=== PATIENT | female | born 1940 | race Caucasian/White ===

== ENCOUNTER 2016-10-11 13:52 | Emergency (ER) | payer BC, OTHER ==
[~2016-10-11] VITALS: Ht 162.6 cm; Wt 79.4 kg
[~2016-10-11 13:52] MED LIST: ASPI81TA28 PO; LEVO-217 PO; MULTTAB58 PO; NYST100010 TOP; OMEGCAP2 PO; TRMCR130WC TOP
[2016-10-11 14:03] VITALS: TEMP 36.9; Ht 162.6 cm; Wt 79.4 kg
[2016-10-11 15:04] VITALS: O2SAT 97
[2016-10-11 15:07] LABS: BASO ABS # 0.08 K/uL (0-0.2); COMPLETE YES; EOS % 9.2 %; HEMATOCRIT 42.1 % (37-47); IG% 0.2 %; LYMPH % 18.4 %; MEAN CELL VOLUME 89.4 fL (80-100); MEAN CORPUSCULAR HEMOGLOBIN 29.7 pg (25-34); MEAN CORPUSCULAR HGB CONC 33.3 g/dl (32-36); MEAN PLATELET VOLUME 9.4 fL (7.4-10.4); MONO % 9.1 %; NEUT % 62.1 %; PLATELET COUNT 238 K/uL (130-400); RED BLOOD COUNT 4.71 M/uL (4.2-5.4); WHITE BLOOD COUNT 8.14 K/uL (4.8-10.8)
[2016-10-11 15:23] LABS: BUN/CREATININE RATIO 9.2 (10-20); CALCIUM 9.2 mg/dl (8.5-10.1); CREATININE 0.94 mg/dl (0.60-1.20); POTASSIUM 3.4 mmol/L (3.5-5.1)
[2016-10-11] MEDS ORDERED: ALBUT/IPRATROP 3MG/0.5MG NEB 3 ML VIAL INH STA (16:00)
--- NOTE | 2016-10-11 16:05 | DIAGNOSTIC IMAGING REPORT ---
CHEST 2 VIEWS ROUTINE HISTORY: Cough. COMPARISON: Chest 08/21/2012. FINDINGS: The lungs are clear. Cardiac silhouette is normal in size. No pleural effusions. No pneumothorax. IMPRESSION: No acute process. Electronically signed by: Benito Vora M.D. 10/11/2016 4:04 PM Dictated Date/Time: 10/11/2016 4:02 PM
[2016-10-11] MEDS ORDERED: HYDR5SYP11 PO (16:29)
[2016-10-11] MEDS ORDERED: AZITTAB PO (16:29)
[2016-10-11] MEDS ORDERED: SYN50 PO (16:38)
[2016-10-11 17:10] VITALS: BP 166/91; PULSE 77; O2SAT 98
--- NOTE | 2016-10-11 19:14 | EMERGENCY ROOM VISIT NOTE ---
History Report prepared by Marshall: Krista Dhillon Under the Supervision of: Dr. Cory Beltran M.D. First contact with patient: 14:22 Chief Complaint: CONGESTION Stated Complaint: CHEST CONGESTION, COUGH X 4 WEEKS History of Present Illness The patient is a 75 year old female who presents to the Emergency Room with complaints of constant congestion beginning 4 weeks prior to arrival. The patient 4 weeks ago began to experience a cough and chest congestion. She went to Urgent Care and had a flu swab done. It was negative. She was given Tamiflu and took it for 5 days. She has not seen improvement of her symptoms. The patient notes that her cough is productive of white sputum. The patient denies fever, heart disease, diabetes or hypertension. She does take thyroid medication. 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 A total of 10 systems reviewed and were otherwise negative. Past Medical & Surgical Medical Problems: (1) Hypothyroidism (2) Hysterectomy Family History Patient reports no known family medical history. Social History Smoking Status: Former Smoker Marital Status: Housing Status: lives alone Occupation Status: employed Current/Historical Medications Scheduled Azithromycin (Zithromax Z-Roverto), 1 PKT PO UD Levothyroxine Sodium (Synthroid), 50 MCG PO QAM Scheduled PRN Hydrocodone W/ Homatropine (Hycodan 5/1.5MG 5 Ml), 5 ML PO Q4H PRN for Cough Allergies Coded Allergies: Penicillins (Verified Allergy, Unknown, UNKNOWN, 10/11/16) Lactose Intolerance (Verified Adverse Reaction, Intermediate, GI SYMPTOMS , 08/21/12) Statins (Verified Adverse Reaction, Intermediate, GI SYMPTOMS, 10/11/16) ALSO "ASTHMA SYMPTOMS" Physical Exam Vital Signs Date Time Temp Pulse Resp B/P Pulse Ox O2 Delivery O2 Flow Rate FiO2 10/11/16 17:10 77 18 166/91 98 10/11/16 16:09 71 12 158/90 100 Nebulizer 7.0 10/11/16 15:05 72 18 143/93 97 Room Air 10/11/16 15:05 69 10/11/16 15:04 97 Room Air 10/11/16 14:03 36.9 81 20 162/101 97 Room Air Physical Exam Constitutional: Vital signs reviewed. Coughing throughout exam. Eyes: Pupils are equal round reactive to light. Conjunctiva are noninjected. ENT: Pharynx is clear without erythema or exudate. Mucous membranes are moist. Neck supple without meningeal signs. Respiratory: Limited due to coughing. No rales. Breath sounds are equal bilaterally. Cardiovascular: Regular rate and rhythm. No rubs or gallops. GI: Soft, nondistended and nontender. Bowel sounds are present. Musculoskeletal: No peripheral edema. No lower extremity tenderness. Integumentary: No cyanosis. Neurological: The patient is awake and alert. No focal deficits. Psychiatric: Normal affect. Medical Decision & Procedures ER Provider Diagnostic Interpretation: X-ray results as stated below per interpretation by me and the radiologist: CHEST 2 VIEWS ROUTINE HISTORY: Cough. COMPARISON: Chest 08/21/2012. FINDINGS: The lungs are clear. Cardiac silhouette is normal in size. No pleural effusions. No pneumothorax. IMPRESSION: No acute process. Electronically signed by: Benito Vora M.D. 10/11/2016 4:04 PM Dictated Date/Time: 10/11/2016 4:02 PM Laboratory Results 10/11/16 14:50 Red Blood Count 4.71, Mean Corpuscular Volume 89.4, Mean Corpuscular Hemoglobin 29.7, Mean Corpuscular Hemoglobin Concent 33.3, Mean Platelet Volume 9.4, Neutrophils (%) (Auto) 62.1, Lymphocytes (%) (Auto) 18.4, Monocytes (%) (Auto) 9.1, Eosinophils (%) (Auto) 9.2, Basophils (%) (Auto) 1.0, Neutrophils # (Auto) 5.05, Lymphocytes # (Auto) 1.50, Monocytes # (Auto) 0.74, Eosinophils # (Auto) 0.75, Basophils # (Auto) 0.08 10/11/16 14:50 Test 10/11/16 14:50 10/11/16 14:55 White Blood Count 8.14 K/uL (4.8-10.8) Red Blood Count 4.71 M/uL (4.2-5.4) Hemoglobin 14.0 g/dL (12.0-16.0) Hematocrit 42.1 % (37-47) Mean Corpuscular Volume 89.4 fL (80-100) Mean Corpuscular Hemoglobin 29.7 pg (25-34) Mean Corpuscular Hemoglobin Concent 33.3 g/dl (32-36) Platelet Count 238 K/uL (130-400) Mean Platelet Volume 9.4 fL (7.4-10.4) Neutrophils (%) (Auto) 62.1 % Lymphocytes (%) (Auto) 18.4 % Monocytes (%) (Auto) 9.1 % Eosinophils (%) (Auto) 9.2 % Basophils (%) (Auto) 1.0 % Neutrophils # (Auto) 5.05 K/uL (1.4-6.5) Lymphocytes # (Auto) 1.50 K/uL (1.2-3.4) Monocytes # (Auto) 0.74 K/uL (0.11-0.59) Eosinophils # (Auto) 0.75 K/uL (0-0.5) Basophils # (Auto) 0.08 K/uL (0-0.2) RDW Standard Deviation 41.5 fL (36.4-46.3) RDW Coefficient of Variation 12.8 % (11.5-14.5) Immature Granulocyte % (Auto) 0.2 % Immature Granulocyte # (Auto) 0.02 K/uL (0.00-0.02) Anion Gap 7.0 mmol/L (3-11) Est Creatinine Clear Calc Drug Dose 53.5 ml/min Estimated GFR () 69.3 Estimated GFR (Non- 59.8 BUN/Creatinine Ratio 9.2 (10-20) Calcium Level 9.2 mg/dl (8.5-10.1) Bedside Troponin I 0.000 ng/ml (0-0.045) Laboratory results as reviewed by me. Medications Administered Medications (Trade) Dose Ordered Sig/Brittanie Route Start Time Stop Time Status Last Admin Dose Admin Albuterol/ Ipratropium (Duoneb) 3 ml NOW STAT INH 10/11/16 16:00 10/11/16 16:01 DC 10/11/16 16:09 3 ML ECG Indication: SOB/dyspnea Rate (beats per minute): 69 Rhythm: normal sinus Findings: T-wave inversion (precordial leads), ST elevation (no), no ectopy ED Course 1423: The patient was evaluated in room B5. A complete history and physical exam was performed. 1600: Duoneb 3 ml INH. 1626: I reevaluated the patient. She is requesting something stronger for her cough. I discussed her test results, need for follow up and medication side effects. 1633: Upon reevaluation, the patient appeared to have improvement of her symptoms. I discussed tonight's findings with her. She verbalized agreement of the treatment plan. She was discharged home. Medical Decision This is a 75-year-old female presents with cough, shortness breath and congestion for a month. Differential diagnosis includes pneumonia, bronchitis, pleurisy, anemia, cardiac. I did perform a limited focused review of portions of the patient's old chart on the electronic medical record. The patient has had no recent pertinent visits to this hospital. I did evaluate the patient as noted above. She is presenting with a 4 week history of shortness breath, chest congestion and a productive cough. She tested negative for the flu but was placed on Tamiflu by an urgent care center. She has had no resolution of her symptoms. Her cough is persistent despite taking Tessalon Perles. IV access was established. The patient was placed on a continuous school bus monitor. I did order and personally review the patient's 12-lead EKG and chest x-ray as described above. Her twelve-lead EKG does not demonstrate any ischemic changes. Her chest x-ray does not show pneumonia. Her white blood cell count is not elevated. Her troponin is 0. I did order and review the patient's blood work as noted in the electronic medical record. I did discuss the test results with the patient. I did treat her with a DuoNeb. I did recommend antibiotic treatment given the length of her symptoms. She requested something stronger for her cough and was given a prescription for Hycodan as well as Zithromax. She was given precautions regarding her Hycodan. She was advised follow up with her doctor and discharged in good condition. Impression Primary Impression: Acute bronchitis Scribe Attestation The scribe's documentation has been prepared under my direct and personally reviewed by me in its entirety. I confirm that the note above accurately reflects all work, treatment, procedures, and medical decision making performed by me. Departure Information Dispostion Home / Self-Care Prescriptions Hydrocodone W/ Homatropine (HYCODAN 5/1.5MG 5 ML) 1 Syp Syp 5 ML PO Q4H Y for Cough, #100 ML Prov: Cory Beltran M.D. 10/11/16 Azithromycin (ZITHROMAX Z-ROVERTO) 250 Mg Tab 1 PKT PO UD for 5 Days, #1 PKT Prov: Cory Beltran M.D. 10/11/16 Referrals No Doctor, Assigned (PCP) Forms HOME CARE DOCUMENTATION FORM, IMPORTANT VISIT INFORMATION Patient Instructions ED Bronchitis Abx Tx, My [facility] Additional Instructions You have been examined and treated today on an emergency basis only. This is not a substitute for, or an effort to provide, complete comprehensive medical care. It is impossible to recognize and treat all injuries or illnesses in a single emergency department visit. It is therefore important that you follow up closely with your physician. Call as soon as possible for an appointment. Return for worsening symptoms or if you develop fever, vomiting, chest pain or any other concerning symptoms. Problem Qualifiers Primary Impression: Acute bronchitis Bronchitis organism: unspecified organism Qualified Codes: J20.9 - Acute bronchitis, unspecified
== END 2016-10-11 17:12 | disposition home or self-care (01) ==
LOC: C.EDB 13:54
DX: J20.9 Acute bronchitis, unspecified (principal); E03.9 Hypothyroidism, unspecified; Z87.891 Personal history of nicotine dependence; Z79.899 Other long term (current) drug therapy

== ENCOUNTER 2017-08-21 17:18 | Emergency (ER) | payer OTHER ==
[~2017-08-21] VITALS: Ht 162.6 cm; Wt 84.4 kg
[~2017-08-21 17:18] MED LIST changes: -ASPI81TA28 PO; -LEVO-217 PO; -MULTTAB58 PO; -NYST100010 TOP; -OMEGCAP2 PO; +SYN50 PO; -TRMCR130WC TOP
[2017-08-21 17:27] VITALS: TEMP 36.9; Ht 162.6 cm; Wt 84.4 kg
[2017-08-21] MEDS ORDERED: DIPHTHERIA/TETANUS/PERTUSSIS 0.5 ML SYR/VIAL IM. ONE (17:45)
[2017-08-21] MEDS ORDERED: XYLOCAINE 1%/SOD BICARB 20 ML VIAL INFIL ONE (17:45)
[2017-08-21] MEDS ORDERED: CEPH500C PO ×2 (17:51→17:54)
[2017-08-21] MEDS ORDERED: CEPHALEXIN MONOHYDRATE 250 MG CAP PO ONE (18:30)
[2017-08-21 18:54] VITALS: BP 133/76; PULSE 69; O2SAT 96
--- NOTE | 2017-08-21 19:57 | EMERGENCY ROOM VISIT NOTE ---
ED Visit Note First contact with patient: 17:31 CHIEF COMPLAINT: Hand laceration HISTORY OF PRESENT ILLNESS: This 76-year-old female patient presents to the emergency department after cutting the right hand while taking the garbage out tonight. The patient believes she cut her hand on the sharp edge of a metal can. The bleeding has stopped. Denies weakness or numbness of the hand or fingers. The patient rates the pain as dull and 3/10. The patient denies any other injuries. The patient's Tetanus shot is not up to date. REVIEW OF SYSTEMS: A 6 system review of systems was completed with positives and pertinent negatives listed in the HPI. ALLERGIES: See EMR MEDICATIONS: See EMR PMH: See EMR SOCIAL HISTORY: Lives locally PHYSICAL EXAM: Vital Signs: Reviewed Nurse's notes, vital signs stable. GENERAL : White female, in no acute distress, well-developed, well-nourished. SKIN: There is a 2.0 cm long laceration on the palmar lateral aspect of the right hand especially in the webbing between the first and second digits. The edges gape apart with traction. There is no foreign material in the wound and it looks clean. There is no bleeding. The flexor tendon of the right thumb is noted. No bony exposure or deep structure injury appreciated. Normal strength and movement of the fingers and wrist. Capillary refill less than 2 seconds. Normal sensation to light and sharp touch. EMERGENCY DEPARTMENT COURSE: I examined the patient. Verbal consent was obtained to perform the procedure. Using sterile technique the wound was cleansed with Betadine. The area was sterilely draped. 3 ml of 1% buffered lidocaine was used to anesthetize the laceration on the hand. Once the patient was anesthetized, the wound was copiously irrigated under pressure with sterile saline. The wound was explored and was as described above. The laceration was repaired using 3 simple interrupted 5-0 nylon sutures with the wound edges being well approximated. The patient tolerated the procedure well. Hemostasis was achieved. The area was cleaned with sterile saline and dressed with bacitracin ointment and bandage. The patient was given Td immunization. She is given a dose of Keflex here in the department. She will be given a continuation course of the medication because of the tendon exposure. The patient was discharged home in good condition. Problem List Medical Problems: (1) Hypothyroidism Status: Chronic (2) Hysterectomy Status: Resolved Current/Historical Medications Scheduled Cephalexin Monohydrate (Keflex), 500 MG PO TID Levothyroxine Sodium (Synthroid), 50 MCG PO QAM Allergies Coded Allergies: Penicillins (Verified Allergy, Unknown, UNKNOWN, 10/11/16) Lactose Intolerance (Verified Adverse Reaction, Intermediate, GI SYMPTOMS , 08/21/12) Statins (Verified Adverse Reaction, Intermediate, GI SYMPTOMS, 10/11/16) ALSO "ASTHMA SYMPTOMS" Vital Signs Date Time Temp Pulse Resp B/P (MAP) Pulse Ox O2 Delivery O2 Flow Rate FiO2 08/21/17 18:54 69 20 133/76 96 08/21/17 17:27 36.9 70 20 145/93 96 Room Air Medications Administered Medications (Trade) Dose Ordered Sig/Brittanie Route Start Time Stop Time Status Last Admin Dose Admin Diphtheria/ Pertussis/Tetanus Vacc (Adacel Inj) 0.5 ml ONCE ONCE IM. 08/21/17 17:45 08/21/17 17:46 DC 08/21/17 17:56 0.5 ML Cephalexin Monohydrate (Keflex Cap) 500 mg NOW ONCE PO 08/21/17 18:30 08/21/17 18:31 DC 08/21/17 18:47 500 MG Departure Information Impression Primary Impression: Laceration of right thumb Dispostion Home / Self-Care Condition GOOD Prescriptions Cephalexin Monohydrate (Keflex) 500 Mg Cap 500 MG PO TID for 5 Days, #15 CAP . Prov: Lanre Hernandez PA-C 08/21/17 Forms HOME CARE DOCUMENTATION FORM, IMPORTANT VISIT INFORMATION Patient Instructions My [facility] Additional Instructions Keep wound clean and dry. Do not allow any crusting or dried blood to accumulate on sutures. If this occurs, use a mild soap/water on a Q-tip to clean the wound. Do not use Peroxide to clean the wound as this can delay healing Use an antibiotic ointment like Bacitracin for 3-4 days, then let wound dry. You may bathe and shower as normal, but DO NOT SOAK the wound. Suture removal in about 8-10 days with your Family Doctor or in the ER. Return sooner for any signs of infection, increasing redness, swelling, or drainage. Cephalexin(Keflex) 500mg: Take one pill 3 times daily for 5 days to prevent infection. All antibiotics can cause diarrhea. If this occurs and you feel worse or it does not resolve in 1-2 days follow up with your doctor or return to the Emergency Department as this could be signs of serious underlying problems. Any medication can cause an allergic reaction, stop the pills immediately and return to the ER for rash, hives, breathing difficulties, or swelling.
== END 2017-08-21 18:55 | disposition home or self-care (01) ==
LOC: C.EDB 17:19 → C.EDD 18:55
DX: S61.011A Laceration without foreign body of right thumb without damage to nail, initial encounter (principal); Y93.E9 Activity, other interior property and clothing maintenance; Z23 Encounter for immunization; E03.9 Hypothyroidism, unspecified; Z88.0 Allergy status to penicillin; Z88.8 Allergy status to other drugs, medicaments and biological substances; Z91.011 Allergy to milk products; Z90.710 Acquired absence of both cervix and uterus

== ENCOUNTER 2017-09-01 10:29 | Emergency (ER) | payer OTHER ==
[~2017-09-01] VITALS: Ht 162.6 cm; Wt 83.0 kg
[~2017-09-01 10:29] MED LIST changes: +CEPH500C PO
[2017-09-01 10:50] VITALS: BP 149/106; PULSE 67; TEMP 36.6; O2SAT 96; Ht 162.6 cm; Wt 83.0 kg
[2017-09-01] MEDS ORDERED: AUG0.05O4 TOP (11:16)
[2017-09-01] MEDS ORDERED: LEVO75TA PO (11:16)
--- NOTE | 2017-09-01 18:16 | EMERGENCY ROOM VISIT NOTE ---
History First contact with patient: 11:01 Chief Complaint: SUTURE/STAPLE REMOVAL Stated Complaint: NEED STITCHES REMOVED Nursing Triage Summary: pt to have sutures removed from R thumb , denies rednes swelling or pain History of Present Illness The patient is a 76 year old female who presents to the Emergency Room for staple removal from a right thumb laceration that was repaired in our department 11 days ago. Patient denies any wound complications. She has been keeping a bandage over the wound. She denies any pain, loss of function, paresthesias or numbness of the thumb. Review of Systems Noncontributory Past Medical/Surgical History Medical Problems: (1) Hypothyroidism (2) Hysterectomy Family History Patient reports no known family medical history. Social History Smoking Status: Current Every Day Smoker Marital Status: Housing Status: lives alone Occupation Status: employed Current/Historical Medications Scheduled Betamethasone Dip Aug 0.05% (Diprolene 0.05%), 1 APPL TOP DAILY Levothyroxine Sodium (Synthroid), 75 MCG PO DAILY Physical Exam Vital Signs Date Time Temp Pulse Resp B/P (MAP) Pulse Ox O2 Delivery O2 Flow Rate FiO2 18 10:50 36.6 67 18 149/106 96 Room Air Pain Rating (0-10): 0 Physical Exam MUSCULOSKELETAL: Examination of the volar base of the right thumb shows a well- healed laceration. The tissue is somewhat macerated from bandage use. Sutures were removed without any wound diastases Medical Decision & Procedures ED Course The patient was encouraged to leave the wound try out, avoiding maceration which can further soften the tissue and increase the risk for diastases. She was encouraged to follow-up with her PCP as needed for any further wound management. Medical Decision Impression Primary Impression: Encounter for removal of sutures Additional Impression: Laceration of right thumb Departure Information Dispostion Home / Self-Care Condition GOOD Referrals No Doctor, Assigned (PCP) Forms HOME CARE DOCUMENTATION FORM, IMPORTANT VISIT INFORMATION Patient Instructions [facility] Problem Qualifiers Additional Impression: Laceration of right thumb Encounter type: subsequent encounter Damage to nail status: without damage Foreign body presence: without foreign body Qualified Codes: S61.011D - Laceration without foreign body of right thumb without damage to nail, subsequent encounter
== END 2017-09-01 11:19 | disposition home or self-care (01) ==
LOC: C.EDB 10:30 → C.EDD 11:19
DX: S61.011D Laceration without foreign body of right thumb without damage to nail, subsequent encounter (principal); X58.XXXD Exposure to other specified factors, subsequent encounter; E03.9 Hypothyroidism, unspecified; F17.200 Nicotine dependence, unspecified, uncomplicated; Z90.710 Acquired absence of both cervix and uterus

== ENCOUNTER → 2017-09-29 | Outpatient (CLI) | payer OTHER ==
[~2017-09-29] MED LIST changes: +AUG0.05O4 TOP; -CEPH500C PO; +LEVO75TA PO; -SYN50 PO
== END | disposition home or self-care (01) ==
LOC: C.LABBFT 09:12
PROVIDERS: ATTEND Internal Medicine
DX: E03.9 Hypothyroidism, unspecified (principal)

== ENCOUNTER → 2018-01-13 | Outpatient (CLI) | payer OTHER | END | disposition home or self-care (01) | LOC: C.LABBFT 13:20 | PROVIDERS: ATTEND Physician Assistant Medical | DX: E03.9 Hypothyroidism, unspecified (principal) ==

== ENCOUNTER 2024-06-24 12:04 | Inpatient (IN) ==
[2024-06-24 12:45] LABS: Basophils # (auto) 0.01 K/uL (0.00-0.20); Basophils % (auto) 0.2 %; Eosinophils # (auto) 0.01 K/uL (0.00-0.50); Eosinophils % (auto) 0.2 %; Hematocrit (blood only) 46.9 % (37.0-47.0); Hemoglobin 15.9 g/dl (12.0-16.0); Immature Granulocytes # (auto) 0.01 K/uL (0.01-0.20); Immature Granulocytes % (auto) 0.2 %; Lymphocytes # (auto) 0.62 K/uL (1.20-3.40); Lymphocytes % (auto) 14.1 %; Mean Corpuscular Hemoglobin 29.6 pg (25.0-34.0); Mean Corpuscular Hgb Conc 33.9 g/dL (32.0-36.0); Mean Corpuscular Volume 87.2 fL (80.0-100.0); Monocytes # (auto) 0.39 K/uL (0.11-0.59); Monocytes % (auto) 8.9 %; Neutrophils # (auto) 3.36 K/uL (1.40-6.50); Neutrophils % (auto) 76.4 %; Platelet Count 192 K/uL (130-400); RDW Coefficient of Variation 12.1 % (11.5-14.5); Red Blood Count 5.38 M/uL (4.20-5.40)
--- NOTE | 2024-06-24 13:04 | XRay Report ---
XR chest 1V not portable CLINICAL HISTORY: Dyspnea COMPARISON STUDY: 08/21/2012 FINDINGS: Heart size and pulmonary vasculature are normal. Stable hyperexpanded lungs. No effusion or consolidation. IMPRESSION: No pneumonia seen. ACT 112: Negative or not required by law. Electronically signed by: Tutu James M.D. 06/24/2024 1:03 PM
[2024-06-24 13:07] LABS: Albumin Globulin Ratio 1.3 (0.9-2); Albumin Level 4.2 gm/dl (3.4-5.0); BUN Creatinine Ratio 13.5 (10-20); Bilirubin,Total 0.6 mg/dl (0.2-1.0); Creatinine Clr Calc Pharmacy 58.6 ml/min; Globulin 3.3 gm/dl (2.5-4.0); Potassium 3.2 mmol/L (3.5-5.1); Total Protein 7.5 gm/dl (6.0-8.3)
[2024-06-24 13:09] LABS: INR 0.9 (0.9-1.1)
[2024-06-24 13:14] LABS: Troponin I High Sensitivity 6.1 pg/ml (0-14)
--- NOTE | 2024-06-24 13:20 | Emergency Department Note ---
Impression & Plan Influenza A, Acute dyspnea, Acute hypoxemic respiratory failure ED Provider Note HISTORY OF PRESENT ILLNESS: Patient is an 83-year-old female presenting with shortness of breath and cough. Patient reports that she developed cold-like symptoms starting 6 days ago. Reports that her shortness of breath and cough have worsened throughout the week. She reports the cough is nonproductive. She has had subjective fevers and chills at home throughout the week. Reports multiple sick contacts at [facility] recently. She states that she woke up today and had 4 episodes of loose watery diarrhea. Denies any recent antibiotic or steroid use. Denies any abdominal pain. Denies any nausea or vomiting. She reports a chest tightness and heaviness. ROS: as above PHYSICAL EXAM: Constitutional: Patient appears in no acute distress. HENT: Head: Normocephalic and atraumatic. Eyes: EOMI, PERRL Mouth/Throat: Mucous membranes moist. Neck: Trachea midline. Neck supple. Cardiovascular: RRR, No murmurs, rubs or gallops. Intact distal pulses. Pulmonary/Chest: Coarse breath sounds bilaterally. Abdominal: Abdomen soft, no tenderness, rebound or guarding. Musculoskeletal: No edema, tenderness or deformity noted. Skin: Warm and dry. No rash, erythema, pallor or cyanosis Psychiatric: Appropriate mood and affect for situation. Neurological: Alert and keenly responsive. CN II-XII grossly intact, moving all extremities equally and fully. MDM: - Vitals signs showed hypertension. Patient was brought back to an examination room and on assessment she was saturating 87 to 88% on room air and placed on 2 L nasal cannula. - History obtained via patient. History as above. - Chronic conditions affecting care: hypothyroidism; HLD - Differential diagnoses include, but are not limited to: Congestive heart failure; acute coronary syndrome; COPD/asthma exacerbation; pulmonary edema; pulmonary embolism; pneumonia; pneumothorax; viral syndrome - Order placed for continuous cardiac monitoring. At this time, monitor showed rate of 72 bpm with normal sinus rhythm, per my interpretation. - External medical records reviewed. Primary care visit note dated 03/21/2024 was reviewed. Patient follows in their clinic for her basal cell carcinoma of the neck. She had cryotherapy performed. - EKG interpreted by myself showed normal sinus rhythm. Rate 74 bpm. QT 394. No acute ischemic changes, but is noted to have some ST depressions and T wave inversions in V4 through V6. - Laboratory workup interpreted by myself showed slight leukopenia (WBC 4.40); normal PT/INR; slight hypokalemia (K 3.2); normal troponin; normal BNP - Viral respiratory panel positive for influenza type A. - CXR negative for pneumonia, per my interpretation - Given a DuoNeb treatment in the emergency department. Given patient's hypoxia and new oxygen requirement, will admit to hospitalist service. - Discussion was had with caseworker intake about patient's case and need for admission - Hospitalist consulted for admission - Patient admitted to [facility] hospitalist service for further evaluation and management. ASSESSMENT AND PLAN: Diagnosis: Acute dyspnea; influenza A infection; acute hypoxic respiratory failure Plan: Admit Past Med/Surg History Problem List (Updated 06/24/24 @ 14:39 by Nell Townsend MD) Acute hypoxemic respiratory failure (Acute) Acute dyspnea (Acute) Influenza A (Acute) Seborrheic keratoses Basal cell carcinoma of neck Cobalamin deficiency Statin intolerance Statin myopathy HLD (hyperlipidemia) Insomnia Skin lesion of neck Fatigue Ambulatory dysfunction Right sided sciatica Vitamin D deficiency (Chronic) Hypothyroidism (Chronic) Medical History Hypercholesteremia Rash and nonspecific skin eruption Laceration of right thumb Surgical History History of cataract surgery H/O: hysterectomy S/P cholecystectomy Family History Father Myocardial infarction Heart disease Mother Hodgkin lymphoma Aunt Diabetes Uncle Diabetes Denies family history of Ovarian cancer Prostate cancer Breast cancer Colorectal cancer Social History Smoking Status: Never smoker Tobacco Type: Cigarettes Age Started Using Tobacco: 19; Age Quit Using Tobacco: 38; packs per day: 1; Cigarettes Per Day: 20; Second Hand Exposure: No; Do You Dip or Chew Tobacco: No; Hx Alcohol Use: No Hx Substance Use: No Preferred Language: Georgian Communication Ability: Effective Visual Impairment: No Limitations Hearing Ability: Normal Field Technical Specialist Required: No Beliefs That Will Affect Care: None marital status: Current Living Situation: Alone Current Living Situation Comment: she has close neighbors and her daughter checks on her a lot current occupational status: employed and retired 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, 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 Feels Safe at Home: Yes Childhood Exposure to Second-Hand Smoke: No Diet: regular Dental Care, Regularly: No Physical Activity Frequency: Daily Seatbelt Use: always Sunscreen Use: No Assistive Devices: Denture - Upper, Denture - Lower and Glasses Allergies Allergies Allergy/AdvReac Type Severity Reaction Status Date / Time Penicillins Allergy Unknown UNKNOWN Verified 03/10/24 11:03 gabapentin AdvReac Intermediate lightheaded, Verified 03/10/24 11:03 N/V/D lactose AdvReac Intermediate GI SYMPTOMS Verified 03/10/24 11:03 Rujkpgf-DNC-RyC Reductase AdvReac Intermediate GI SYMPTOMS Verified 03/10/24 11:03 Inhibitor [Sxixgvq-Qoh-Pjn Reductase Inhibitor] azithromycin AdvReac Mild diarrhea Verified 03/10/24 11:03 prednisone AdvReac Mild Diarrhea Verified 03/10/24 11:03 Home Meds Home Medications Medication Instructions Recorded Confirmed cholecalciferol (vitamin D3) 50 50 mcg PO DAILY 02/19/24 04/26/24 mcg (2,000 unit) capsule Previous Rx's Medication Instructions Recorded cholecalciferol (vitamin D3) 25 25 mcg PO DAILY #90 caps 03/10/24 mcg (1,000 unit) capsule ezetimibe 10 mg tablet 10 mg PO DAILY #30 tabs 03/10/24 levothyroxine 75 mcg tablet 75 mcg PO QAM #90 tabs 03/10/24 Results & Data (ED) Vital Signs Vital Signs - 24 hr 06/24/24 12:13 06/24/24 13:08 06/24/24 13:19 Temperature 36.5 C Temperature Source Oral Pulse Rate 84 72 Respiratory Rate 18 Blood Pressure 145/93 H Blood Pressure Mean 110 Pulse Oximetry 91 87 L Oxygen Delivery Method Room Air Room Air Sepsis Recent Fever Within 48 Hours No Sepsis New/Unexplained Change in Mental Status No Sepsis Action Taken by Nursing No Action Required Oxygen Flow Rate - Titration 3 Pulse Oximetry Post Tiitration 95 Laboratory Data 06/24/24 12:26 06/24/24 12:26 Lab Results 06/24/24 Range/Units 12: WBC 4.40 L (4.8-10.8) K/ul RBC 5.38 (4.20-5.40) M/uL Hgb 15.9 (12.0-16.0) g/dl Hct 46.9 (37.0-47.0) % MCV 87.2 (80.0-100.0) fL MCH 29.6 (25.0-34.0) pg MCHC 33.9 (32.0-36.0) g/dL RDW Std Deviation 39.0 (36.4-46.3) fL RDW Coeff of Rowdy 12.1 (11.5-14.5) % Plt Count 192 (130-400) K/uL MPV 10.0 (9.4-12.4) fL Immature Gran % (Auto) 0.2 % Neut % (Auto) 76.4 % Lymph % (Auto) 14.1 % [place] % (Auto) 8.9 % Eos % (Auto) 0.2 % Baso % (Auto) 0.2 % Neut # (Auto) 3.36 (1.40-6.50) K/uL Lymph # (Auto) 0.62 L (1.20-3.40) K/uL [place] # (Auto) 0.39 (0.11-0.59) K/uL Eos # (Auto) 0.01 (0.00-0.50) K/uL Baso # (Auto) 0.01 (0.00-0.20) K/uL Immature Gran # (Auto) 0.01 (0.01-0.20) K/uL PT 10.0 (9.0-12.0) Seconds INR 0.9 (0.9-1.1) Sodium 137 (136-145) mmol/L Potassium 3.2 L (3.5-5.1) mmol/L Chloride 97 L (98-107) mmol/L Carbon Dioxide 31 (21-32) mmol/L Anion Gap 9 (3-11) BUN 10 (6-23) mg/dl Creatinine 0.74 (0.6-1.2) mg/dl Est Cr Clr Drug Dosing 58.6 ml/min eGFR 80.73 BUN/Creatinine Ratio 13.5 (10-20) Glucose 109 H (70-99(Fasting)) mg/dl Calcium 9.0 (8.6-10.3) mg/dl Magnesium 2.0 (1.7-2.4) mg/dl Total Bilirubin 0.6 (0.2-1.0) mg/dl AST 21 (13-39) U/L ALT 12 (7-52) U/L Alkaline Phosphatase 78 (34-104) U/L Troponin I High Sens 6.1 (0-14) pg/ml B-Natriuretic Peptide 37 (0-100) pg/ml Total Protein 7.5 (6.0-8.3) gm/dl Albumin 4.2 (3.4-5.0) gm/dl Globulin 3.3 (2.5-4.0) gm/dl Albumin/Globulin Ratio 1.3 (0.9-2) Adenovirus (PCR) Not Detected (NotDetected) B. pertussis DNA (PCR) Not Detected (NotDetected) B.parapertussis DNA PCR Not Detected (NotDetected) C. pneumoniae DNA (PCR) Not Detected (NotDetected) Coronavirus OC43 (PCR) Not Detected (NotDetected) Coronavirus HKU1 (PCR) Not Detected (NotDetected) Coronavirus 229E (PCR) Not Detected (NotDetected) SARS-CoV-2 (PCR) Not Detected (NotDetected) Coronavirus NL63 (PCR) Not Detected (NotDetected) Human Metapneumovir PCR Not Detected (NotDetected) Influenza A (H3) PCR DETECTED A (NotDetected) Influenza Type B (PCR) Not Detected (NotDetected) M. pneumoniae (PCR) Not Detected (NotDetected) Parainfluenza 1 (PCR) Not Detected (NotDetected) Parainfluenza 2 (PCR) Not Detected (NotDetected) Parainfluenza 3 (PCR) Not Detected (NotDetected) Parainfluenza 4 (PCR) Not Detected (NotDetected) RSV (PCR) Not Detected (NotDetected) Entero/Rhino (PCR) Not Detected (NotDetected) Administered Medications Discontinued Medications Albuterol (Albut/Ipratrop 3mg/0.5mg Neb 3 Ml Vial) 3 ml NEB NOW STA; Protocol Stop: 06/24/24 13:19 Last Admin: 06/24/24 13:23 Dose: 3 ml Documented By: MR Imaging Data Radiologist's Impression: Chest X-Ray 06/24/24 12:16 XR chest 1V not portable CLINICAL HISTORY: Dyspnea COMPARISON STUDY: 08/21/2012 FINDINGS: Heart size and pulmonary vasculature are normal. Stable hyperexpanded lungs. No effusion or consolidation. IMPRESSION: No pneumonia seen. ACT 112: Negative or not required by law. Electronically signed by: Tutu James M.D. 06/24/2024 1:03 PM Discharge Plan Visit Data Chief Complaint: Cough Stated Complaint: COUGH, SOB, FEVER, WEAKNESS ED Provider: Nell Townsend Discharge Problem: Influenza A, Acute dyspnea, Acute hypoxemic respiratory failure Forms Stand Alone Forms: APX Prescriptions Prescriptions: No Action cholecalciferol (vitamin D3) 50 mcg (2,000 unit) capsule 50 mcg PO DAILY levothyroxine 75 mcg tablet 75 mcg PO QAM Qty: 90 3RF ezetimibe 10 mg tablet 10 mg PO DAILY Qty: 30 2RF cholecalciferol (vitamin D3) 25 mcg (1,000 unit) capsule 25 mcg PO DAILY Qty: 90 3RF Referrals Referrals: Tony Pederson DO [Primary Care Provider] -
[2024-06-24] MEDS: ALBUT/IPRATROP 3MG/0.5MG NEB 3 ML VIAL NEB STA (13:23)
[2024-06-24 13:51] LABS: Adenovirus PCR Not Detected (NotDetected); Bordetella parapertussis PCR Not Detected (NotDetected); Bordetella pertussis PCR Not Detected (NotDetected); Chlamydia pneumoniae PCR Not Detected (NotDetected); Coronavirus 229E PCR Not Detected (NotDetected); Coronavirus CoV-2 (COVID19)PCR Not Detected (NotDetected); Coronavirus HKU1 PCR Not Detected (NotDetected); Coronavirus NL63 PCR Not Detected (NotDetected); Coronavirus OC43PCR Not Detected (NotDetected); Human Metapneumovirus PCR Not Detected (NotDetected); Influenza A (H3) PCR DETECTED (NotDetected); Influenza B PCR Not Detected (NotDetected); Mycoplasma pneumoniae PCR Not Detected (NotDetected); Parainfluenza Virus 1 PCR Not Detected (NotDetected); Parainfluenza Virus 2 PCR Not Detected (NotDetected); Parainfluenza Virus 3 PCR Not Detected (NotDetected); Parainfluenza Virus 4 PCR Not Detected (NotDetected); Respiratory Syncytial VirusPCR Not Detected (NotDetected); Rhinovirus/Enterovirus PCR Not Detected (NotDetected)
[2024-06-24] MEDS ORDERED: ACETAMINOPHEN 325 MG TAB PO PRN (14:36)
[2024-06-24] MEDS ORDERED: ALBUTEROL 0.083% NEBU SOLN 3 ML VIAL NEB PRN (14:36)
--- NOTE | 2024-06-24 14:47 | History & Physical Report ---
Date of Service June 24, 2024 Assessment & Plan (1) Acute hypoxemic respiratory failure: Plan: Assessment: 1. Acute hypoxemic respiratory failure secondary to #2. 2. Acute influenza A positivity. Pulmonary toilet including oral Tamiflu and nebulizer treatments. And supplemental oxygen therapy. 3. Mild leukopenia this appears to be acute on chart review. I do suspect this from her acute viral illness. Monitor. 3. Dyslipidemia continue home medication. 5. Hypothyroidism continue home Synthroid supplementation. Check TSH in the a.m. Plan: As described above. Please refer to orders for further planning. History of Present Illness Chief Complaint: Shortness of breath, cough Primary Care Provider: DO Shauna Tenorio 83-year-old female whose had some intermittent shortness of breath cough over the last week and a half or so. Over the last 24 hours has been significantly worse with her shortness of breath he presented to the ER for further evaluation and treatment. In the ER she was identified to have influenza A positivity. Her oxygen saturation dropped to 87% on room air she was placed on supplemental oxygen and given a nebulizer treatment. Her other labs were unremarkable with exception some mild leukopenia which is probably secondary to her acute viral illness. We were called admit the patient for further evaluation and treatment for acute influenza A. We have ordered her Tamiflu. Will continue nebulizer treatments. Watch her on [facility] telemetry track her oxygen levels we do anticipate she will need to overnight at least until her oxygenation improves prior to discharge. Allergies Allergy/AdvReac Type Severity Reaction Status Date / Time Penicillins Allergy Unknown UNKNOWN Verified 03/10/24 11:03 gabapentin AdvReac Intermediate lightheaded, Verified 03/10/24 11:03 N/V/D lactose AdvReac Intermediate GI SYMPTOMS Verified 03/10/24 11:03 Aylngpx-HTV-KnE Reductase AdvReac Intermediate GI SYMPTOMS Verified 03/10/24 11:03 Inhibitor [Mtjarkx-Uyo-Hnf Reductase Inhibitor] azithromycin AdvReac Mild diarrhea Verified 03/10/24 11:03 prednisone AdvReac Mild Diarrhea Verified 03/10/24 11:03 Home Medications Medication Instructions Recorded Confirmed Type cholecalciferol (vitamin D3) 50 50 mcg PO DAILY 02/19/24 04/26/24 History mcg (2,000 unit) capsule cholecalciferol (vitamin D3) 25 25 mcg PO DAILY #90 caps 03/10/24 04/26/24 Rx mcg (1,000 unit) capsule ezetimibe 10 mg tablet 10 mg PO DAILY #30 tabs 03/10/24 04/26/24 Rx levothyroxine 75 mcg tablet 75 mcg PO QAM #90 tabs 03/10/24 04/26/24 Rx Past Med/Surg History Problem List (Updated 06/24/24 @ 14:39 by Nell Townsend MD) Acute hypoxemic respiratory failure (Acute) Acute dyspnea (Acute) Influenza A (Acute) Seborrheic keratoses Basal cell carcinoma of neck Cobalamin deficiency Statin intolerance Statin myopathy HLD (hyperlipidemia) Insomnia Skin lesion of neck Fatigue Ambulatory dysfunction Right sided sciatica Vitamin D deficiency (Chronic) Hypothyroidism (Chronic) Medical History Hypercholesteremia Rash and nonspecific skin eruption Laceration of right thumb Surgical History History of cataract surgery H/O: hysterectomy S/P cholecystectomy Family History Father Myocardial infarction Heart disease Mother Hodgkin lymphoma Aunt Diabetes Uncle Diabetes Denies family history of Ovarian cancer Prostate cancer Breast cancer Colorectal cancer Social History Smoking Status: Never smoker Tobacco Type: Cigarettes Age Started Using Tobacco: 19; Age Quit Using Tobacco: 38; packs per day: 1; Cigarettes Per Day: 20; Second Hand Exposure: No; Do You Dip or Chew Tobacco: No; Hx Alcohol Use: No Hx Substance Use: No Preferred Language: Romanian Communication Ability: Effective Visual Impairment: No Limitations Hearing Ability: Normal Adult Literacy Instructor Required: No Beliefs That Will Affect Care: None marital status: Current Living Situation: Alone Current Living Situation Comment: she has close neighbors and her daughter checks on her a lot current occupational status: employed and retired 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 Physical Exam Physical Exam: In General: In general very pleasant 83-year-old female who is alert and oriented x 3 at the time of my exam. She had not been informed yet by the ER that she tested positive for flu or was needing admitted. We discussed all these issues with her in depth. She was appreciative of her time. 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 HEENT: Normocephalic atraumatic pupils are equal round and reactive to light bilaterally. No scleral icterus no conjunctival injection external auditory canals are patent septum is in the midline nose is without discharge oral mucosa is pink and moist without lesion. NECK: Supple no rigidity no lymphadenopathy no thyromegaly no carotid bruits no JVD no masses. HEART: Regular rate and rhythm I do not appreciate any ectopy or rub. No murmur. LUNGS: Coarse bilaterally with bilateral expiratory wheezes. No moe rhonchi. ABDOMEN: Soft nontender, no rebound, no peritoneal signs, positive bowel sounds, no appreciable organomegaly. EXTREMITIES: Intact, no peripheral cyanosis, clubbing or edema. Strength is 5 out of 5 in extremities x4.. NEUROLOGICAL: Cranial nerves II through XII are grossly intact with no focal deficit elicited upon examination. Results & Data Results & Data Vital Signs (Past 12 Hours) Vital Signs Temp Pulse Resp BP Pulse Ox O2 Del Method 06/24/24 13:19 87 L Room Air 06/24/24 13:08 72 06/24/24 12:13 36.5 C 84 18 145/93 H 91 Room Air Code Status & VTE Plan Code Status Full code. I personally discussed with patient at the bedside. Her next of kin is her daughter. VTE Prophylaxis Plan VTE Prophylaxis will be ordered: Yes PG Care Time/CCT Total # of Minutes Spent Total Time Spent with Patient: Total time spent is greater than 50% in coordination of care (as documented) at patient's floor/unit and/or counseling patient: Coding Level of Care Code 57916 INT INP/OBS CARE 3/75MIN Diagnoses Acute hypoxemic respiratory failure J96.01
[2024-06-24] MEDS: OSELTAMIVIR PHOSPHATE 75 MG CAP PO STA (14:54)
--- NOTE | 2024-06-24 17:50 | Electrocardiogram Report ---
Test Reason : Blood Pressure : */* mmHG Vent. Rate : 74 BPM Atrial Rate : 74 BPM P-R Int : 162 ms QRS Dur : 92 ms QT Int : 394 ms P-R-T Axes : 54 -23 79 degrees QTcB Int : 437 ms Normal sinus rhythm Abnormal ECG When compared with ECG of 11-Oct-2016 14:57, Nonspecific T wave abnormality now evident in Inferior leads Confirmed by Yimi Frias ([id number]) on 06/24/2024 5:50:23 PM Referred By: REFERRED SELF Confirmed By: Yimi Frias
[2024-06-24] MEDS: ALBUT/IPRATROP 3MG/0.5MG NEB 3 ML VIAL NEB SCH (19:46)
[2024-06-24] MEDS: OSELTAMIVIR PHOSPHATE 75 MG CAP PO SCH (19:54)
[2024-06-25 00:20] LABS: Appearance Urine Clear (Clear); Bacteria Urine Automated 1+ (None Seen); Bilirubin Urine Negative (Negative); Blood Urine 1+ (Negative); Cast Urine Automated 0-2 /lpf (0-2); Color Urine Yellow; Epithelial Cell Urine Auto 0-2 /hpf (0-2); Glucose Urine UA Negative (Negative); Ketones Urine Trace (Negative); Leukocyte Esterase Urine Trace (Negative); Nitrite Urine Negative (Negative); Protein Urine Trace (Negative); Specific Gravity Urine 1.024 (1.000-1.030); Urobilinogen Urine Negative (Negative); WBC Urine Automated 0-5 /hpf (0-5)
[2024-06-25] MEDS: LEVOTHYROXINE SODIUM 75 MCG TABLET PO SCH (06:36)
[2024-06-25 07:08] LABS: Basophils # (auto) 0.02 K/uL (0.00-0.20); Basophils % (auto) 0.4 %; Eosinophils # (auto) 0.04 K/uL (0.00-0.50); Eosinophils % (auto) 0.9 %; Hematocrit (blood only) 41.6 % (37.0-47.0); Hemoglobin 14.1 g/dl (12.0-16.0); Immature Granulocytes # (auto) 0.01 K/uL (0.01-0.20); Immature Granulocytes % (auto) 0.2 %; Lymphocytes # (auto) 1.08 K/uL (1.20-3.40); Mean Corpuscular Hemoglobin 29.4 pg (25.0-34.0); Mean Corpuscular Hgb Conc 33.9 g/dL (32.0-36.0); Mean Corpuscular Volume 86.8 fL (80.0-100.0); Mean Platelet Volume 10.3 fL (9.4-12.4); Monocytes # (auto) 0.48 K/uL (0.11-0.59); Monocytes % (auto) 10.2 %; Neutrophils # (auto) 3.06 K/uL (1.40-6.50); Neutrophils % (auto) 65.3 %; Platelet Count 178 K/uL (130-400); RDW Standard Deviation 38.5 fL (36.4-46.3); Red Blood Count 4.79 M/uL (4.20-5.40); White Blood Count 4.69 K/ul (4.8-10.8)
--- NOTE | 2024-06-25 07:12 | Hospitalist Progress Note ---
Date of Service June 25, 2024 Assessment & Plan (1) Acute hypoxemic respiratory failure: (2) Influenza A (H1N1): (3) Hypothyroidism: (4) HLD (hyperlipidemia): (5) Hypokalemia: Plan # Acute Respi failure *Improving. - Presented to ED in respi failure. SPO2: 87% at RA - Sec to Influenza A. Sick for a week now. - Chest Xray: No acute changes, no PNE. - No previous lung issue. No use of O2 before. - Admitted for O2 supplementation: 2L/ min Tamiflu/ DuoNeb Nebulization - O2 weaning trial today, if tolerates possible DC tomorrow. # Mild leucopenia: - Persistent; 4.69 today----< 4.40 - Sec to Viral illness. #Hypokalemia Mild,Improving: K: 3.3---< 3.2 Sec to acute nutritional compromise No other RFs, anticipate improvement on diet. #Other issues - Dyslipidemia: on Ezetimibe, Today's lipid under goal. 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 Soriano. Patient tolerating tamiflu. Weaning oxygen as able. Subjective This AM Mrs. Saleh feels a lot better. Her cough is getting better, No new complains. No SOB, CP, no fever. Mentions some headache and overall decreased appetite since sickness. Review of Systems Review of Systems: As per HPI Physical Exam Physical Exam: Constitutional: Well appearing, No acute distress, With Nasal canula. HEENT: Atraumatic, Normocephalic, No conjunctival injection CVS: S1 S2 no murmur, Regular Rhythm, no LE edema Respiratory: BL equal air entry with coarse breath sound. No increased work of breathing GI: Soft, Nondistended, Nontender, Normal Bowel sounds + MSK: No gross deformities noted Skin: Warm, Dry, No rashes Neuro: Alert, Oriented to TPP, No Focal deficit Psych: Mood and Affect congruent, Cooperative on exam Results & Data Results & Data Vital Signs (Past 12 Hours) Vital Signs Temp Pulse Pulse Resp BP Pulse Ox O2 Del Method 06/25/24 04:00 36.7 C 67 18 121/75 93 Nasal Cannula 06/25/24 00:09 67 18 91 Nasal Cannula 06/24/24 23:34 65 06/24/24 22:40 37.1 C 66 18 134/73 91 Nasal Cannula 06/24/24 20:18 Nasal Cannula 06/24/24 19:46 71 18 92 Nasal Cannula 06/24/24 19:32 36.8 C 66 18 133/80 91 Nasal Cannula O2 Flow Rate 06/25/24 04:00 2 06/25/24 00:09 2 06/24/24 23:34 06/24/24 22:40 2 06/24/24 20:18 2 06/24/24 19:46 2 06/24/24 19:32 2 Resident Activity Tracking Resident Involvement: Resident Care Provided Care Provided: Adult Hospital Medicine
[2024-06-25 07:28] LABS: Albumin Globulin Ratio 1.3 (0.9-2); Albumin Level 3.7 gm/dl (3.4-5.0); BUN Creatinine Ratio 12.9 (10-20); Bilirubin,Total 0.7 mg/dl (0.2-1.0); Calcium 8.5 mg/dl (8.6-10.3); Chol HDL Ratio 3.6 (0-5); Creatinine Clr Calc Pharmacy 69.9 ml/min; Globulin 2.8 gm/dl (2.5-4.0); Potassium 3.3 mmol/L (3.5-5.1); Total Protein 6.5 gm/dl (6.0-8.3)
[2024-06-25 07:42] LABS: Thyroid Stimulating Hormone 1.504 uIu/ml (0.300-4.500)
[2024-06-25] MEDS: EZETIMIBE 10 MG TAB PO SCH (08:55)
[2024-06-25 11:35] LABS: Adenovirus F 40/41 PCR Not Detected (NotDetected); Astrovirus PCR Not Detected (NotDetected); Campylobacter PCR Not Detected (NotDetected); Cryptosporidium PCR Not Detected (NotDetected); Cyclospora cayetanensis PCR Not Detected (NotDetected); Entamoeba histolytica PCR Not Detected (NotDetected); Enteroaggregative E.coli(EAEC) Not Detected (NotDetected); Enteropathogenic E.coli (EPEC) Not Detected (NotDetected); Enterotoxigenic E.coli (ETEC) Not Detected (NotDetected); Giardia lamblia PCR Not Detected (NotDetected); Norovirus GI/GII PCR Not Detected (NotDetected); Plesiomonas shigelloides PCR Not Detected (NotDetected); Rotavirus A PCR Not Detected (NotDetected); Salmonella PCR Not Detected (NotDetected); Sapovirus PCR Not Detected (NotDetected); Shiga-like Toxin E.coli (STEC) Not Detected (NotDetected); Shigella/Enteroinvasive E.coli Not Detected (NotDetected); Vibrio cholerae PCR Not Detected (NotDetected); Vibrio species PCR Not Detected (NotDetected); Yersinia enterocolitica PCR Not Detected (NotDetected)
[2024-06-25] MEDS: PLASMA-LYTE A 1,000 ML IV SCH (13:58)
[2024-06-26 06:11] LABS: Hematocrit (blood only) 39.5 % (37.0-47.0); Hemoglobin 13.3 g/dl (12.0-16.0); Mean Corpuscular Hemoglobin 29.8 pg (25.0-34.0); Mean Corpuscular Hgb Conc 33.7 g/dL (32.0-36.0); Mean Corpuscular Volume 88.4 fL (80.0-100.0); Mean Platelet Volume 10.2 fL (9.4-12.4); Platelet Count 169 K/uL (130-400); RDW Coefficient of Variation 12.1 % (11.5-14.5); RDW Standard Deviation 39.2 fL (36.4-46.3); Red Blood Count 4.47 M/uL (4.20-5.40); White Blood Count 4.22 K/ul (4.8-10.8)
[2024-06-26 06:27] LABS: BUN Creatinine Ratio 10.2 (10-20); Calcium 8.3 mg/dl (8.6-10.3); Creatinine Clr Calc Pharmacy 73.5 ml/min; Potassium 3.5 mmol/L (3.5-5.1)
[2024-06-26 06:39] LABS: ALC (manual) 1.18 K/uL (1.2-3.4); ANC (manual) 2.91 K/uL (1.4-6.5); Lymphocytes # (manual) 1.06 K/uL (1.2-3.4); Lymphocytes % (manual) 25 %; Monocytes # (manual) 0.13 K/uL (0.11-0.59); Monocytes % (manual) 3 %; Neutrophils # (manual) 2.91 K/uL (1.40-6.50); Neutrophils % (manual) 69 %; Plasma Cells # (manual) 0.13 K/uL (0-0); Plasma Cells % (manual) 3 %
[2024-06-26 07:07] VITALS: RESP 16
[2024-06-26 11:04] VITALS: TEMP 97.7
--- NOTE | 2024-06-26 12:40 | Discharge Summary ---
Date of Service June 26, 2024 Admission HPI Per Admitting Provider Shauna 83-year-old female whose had some intermittent shortness of breath cough over the last week and a half or so. Over the last 24 hours has been significantly worse with her shortness of breath he presented to the ER for further evaluation and treatment. In the ER she was identified to have influenza A positivity. Her oxygen saturation dropped to 87% on room air she was placed on supplemental oxygen and given a nebulizer treatment. Her other labs were unremarkable with exception some mild leukopenia which is probably secondary to her acute viral illness. We were called admit the patient for further evaluation and treatment for acute influenza A. We have ordered her Tamiflu. Will continue nebulizer treatments. Watch her on [employer] telemetry track her oxygen levels we do anticipate she will need to overnight at least until her oxygenation improves prior to discharge. Admission Exam Per Admitting Provider In General: In general very pleasant 83-year-old female who is alert and oriented x 3 at the time of my exam. She had not been informed yet by the ER that she tested positive for flu or was needing admitted. We discussed all these issues with her in depth. She was appreciative of her time. 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 HEENT: Normocephalic atraumatic pupils are equal round and reactive to light bilaterally. No scleral icterus no conjunctival injection external auditory canals are patent septum is in the midline nose is without discharge oral mucosa is pink and moist without lesion. NECK: Supple no rigidity no lymphadenopathy no thyromegaly no carotid bruits no JVD no masses. HEART: Regular rate and rhythm I do not appreciate any ectopy or rub. No murmur. LUNGS: Coarse bilaterally with bilateral expiratory wheezes. No moe rhonchi. ABDOMEN: Soft nontender, no rebound, no peritoneal signs, positive bowel sounds, no appreciable organomegaly. EXTREMITIES: Intact, no peripheral cyanosis, clubbing or edema. Strength is 5 out of 5 in extremities x4.. NEUROLOGICAL: Cranial nerves II through XII are grossly intact with no focal deficit elicited upon examination Principal Diagnosis Improved respiratory failure Influenza A. Discharge Exam Constitutional: Well appearing, No acute distress, With Nasal canula. HEENT: Atraumatic, Normocephalic, No conjunctival injection CVS: S1 S2 no murmur, Regular Rhythm, no LE edema Respiratory: BL equal air entry with coarse breath sound. No increased work of breathing GI: Soft, Nondistended, Nontender, Normal Bowel sounds + MSK: No gross deformities noted Skin: Warm, Dry, No rashes Neuro: Alert, Oriented to TPP, No Focal deficit Psych: Mood and Affect congruent, Cooperative on exam Discharge Data Allergies Allergy/AdvReac Type Severity Reaction Status Date / Time Penicillins Allergy Unknown UNKNOWN Verified 06/24/24 15:04 gabapentin AdvReac Intermediate lightheaded, Verified 06/24/24 15:04 N/V/D lactose AdvReac Intermediate GI SYMPTOMS Verified 06/24/24 15:04 Gdkfkhi-MNY-PnF Reductase AdvReac Intermediate GI SYMPTOMS Verified 06/24/24 15:04 Inhibitor [Poshvdy-Aqj-Fim Reductase Inhibitor] azithromycin AdvReac Mild diarrhea Verified 06/24/24 15:04 prednisone AdvReac Mild Diarrhea Verified 06/24/24 15:04 Consultations 06/24/24 14:34 ED Decision to Admit Stat Hospital Course (1) Acute hypoxemic respiratory failure: (2) Influenza A (H1N1): (3) Hypothyroidism: (4) HLD (hyperlipidemia): (5) Hypokalemia: Plan # Acute Respi failure * Sec to Influenza A; Improved. Treated with Tamiflu, nebulization and O2 supple. - Weaned off O2 on DC. Will complete Tamiflu for 5 days total( 3 more days) #Hypokalemia Improved, On DC: 3.5 Encouraged Nutritional intake. Appetite better on DC. #Other issues - Dyslipidemia: on Ezetimibe, lipid under goal. - Hypothyroidism: On Synthroid, TSH: 1.15, continue same. Independent on ADLs: DC to home. Total Time Total Time Spent Total Time Spent (In Minutes): See attending's attestation Discharge Plan Discharge Items Patient Disposition: Home - Self-Care Reason For Visit: SOB Discharge Diagnosis: INFLUENZA A, Improving Activity: Resume your previous activity Non-emergency contact: Primary Care Provider Call non-emergency contact if: your symptoms worsen Follow-up/Referrals: Tony Pederson DO [Primary Care Provider] - 07/06/24 1:00 pm Diet: Regular Addtl Attending Provider Instructions: You were admitted to the hospital for Acute respiratory failure with low blood oxygen level because of Influenza A.. You were treated with antiviral medicine called Tamiflu, Oxygen supplementation and intravenous fluids. You improved well. Your oxygen level came faily normal without Oxygen supplementation during Discharge. A discharge summary will be sent to your primary care physician to ensure continuity of care. Please bring this discharge summary with you to your next office appointment so that your provider can review it at that time. Medications: Your medication list has been reviewed and reconciled upon discharge to ensure accuracy and continuity of care. An updated list of all your medications is included with your hospital discharge paperwork. Please review this list closely and make note of any changes to your medications. All your previous medications has been sent as it is. New medication: # Tamiflu is transmitted to your pharmacy to complete course of total 5 days. Follow up appointments: - Make a follow up appointment with your PCP within the next week. It is very important that you follow up with them shortly after discharge from the hospital. - We are more than happy to follow you at [facility]( [address], [address], . You can call this number and schedule appointment. - Keep all of your follow up appointments as already scheduled. If you cannot make an appointment, notify your provider. - Monitor your blood oxygen level at home with Pulse oximetry device and report immediately if persistently below 88%. CONTACT YOUR PRIMARY CARE PROVIDER if you experience any of the following: - Sudden Shortness of breath, severe chest pain, severe headache, Lightheadedness. - Difficulty following your treatment plan - Difficulty taking any of your medications CALL 911 OR GO TO THE EMERGENCY DEPARTMENT if you experience any of the following: - -Sudden Shortness of breath, severe chest pain, severe headache, Lightheadedness - Sudden, severe abdominal pain or nausea/vomiting - Severe chest pain or chest pain that radiates to your jaw or arm - Sudden, severe shortness of breath or difficulty breathing Thank you for being on our care. Dr. Xiomara Soriano MD Pending Studies at Discharge: No Stand-Alone Forms: [facility], Smoking Cessation Medications and DC Order Prescriptions: New oseltamivir [Tamiflu] 75 mg capsule 75 mg PO BID 3 Days Qty: 6 0RF (DME) Incentive Spirometer Misc See Rx Instructions .Route Qty: 1 0RF Rx Instructions: As directed albuterol sulfate 90 mcg/actuation HFA aerosol inhaler 2 inh inhalation Q6H PRN (Reason: shortness of breath or wheezing) Qty: 6.7 0RF Continued levothyroxine 75 mcg tablet 75 mcg PO QAM Qty: 90 3RF cholecalciferol (vitamin D3) 25 mcg (1,000 unit) capsule 25 mcg PO DAILY Qty: 90 3RF Discharge Orders: Discharge Order (Routine); Ordered 06/26/24 Ordered By: Xiomara Villanueva/Other Patient Handouts: The Flu (Influenza) Admission Data Admit Date/Time: 06/24/24 14:36 Attending Provider: Gwen Piña Admit Provider: Delmar Chapman Primary Care Provider: Tony Pederson Other Providers: Delmar Chapman Other Interventions: Discharge Summary Assessment (RN) Last Done: 06/26/24 13:40 Supervising Physician Co-Signing Physician Notes I personally examined the patient and verified agustin points of history and exam, discussed case, and agree with decision making and plan documented by Dr. Soriano. Patient on admission for influenza A. Tamiflu started and script to complete therapy sent to pharmacy with albuterol inhaler. Patient advised to follow-up w ith PCP in one week. Her daughter is in town from [place] to care for her over the next week. Resident Activity Tracking Resident Involvement: Resident Care Provided Care Provided: Adult Hospital Medicine
[2024-06-26 12:55] VITALS: O2SAT 92
[2024-06-26 13:41] VITALS: BP 120/75
[2024-06-26 15:39] VITALS: PULSE 63
== END 2024-06-26 14:24 | disposition home or self-care (01) | DRG 189 ==
LOC: ED 12:04 → SUATTDRO 14:36 → 2N 14:36